=== PATIENT | male | born 1950 | race Caucasian/White ===

== ENCOUNTER 2017-05-23 05:55 | Inpatient (IN) | payer MEDICARE, BC ==
[~2017-05-23] VITALS: Ht 172.7 cm; Wt 101.7 kg
[~2017-05-23 05:55] MED LIST: ALLO100T PO; AMIO200T57 PO; CARV-50 PO; COU3T PO; DIGO125T PO; FURO-150 PO; INSU100V12 SQ; INSU100V5 IJ; ISOS30TA9 PO; METF500T PO; SIMV20TA5 PO; SPIR25TA3 PO; VALS160T2 PO
[2017-05-23] MEDS ORDERED: CefTRIAXone 1 gm/50ml D5W ADV 50 ML IV ONE (06:40)
[2017-05-23] MEDS ORDERED: AMIO200T57 PO (07:06)
[2017-05-23] MEDS ORDERED: cefTRIAXone 1g/NS 100ml IVPB 100 ML IV ONE (07:10)
[2017-05-23 07:28] LABS: BASOPHILS % (AUTO) 0.3 % (0-1); EOSINOPHILS # (AUTO) 0.2 X10'3 (0-0.9); EOSINOPHILS % (AUTO) 2.3 % (0-6); HEMATOCRIT 41.1 % (42.0-52.0); HEMOGLOBIN 13.6 g/dl (14.0-17.9); LYMPHOCYTES # (AUTO) 0.5 X10'3 (1.1-4.8); LYMPHOCYTES % (AUTO) 6.4 % (21-51); MEAN CORPUSCULAR HEMOGLOBIN 28.7 PG (27.0-31.0); MEAN CORPUSCULAR HGB CONC 33.2 % (33.0-36.5); MEAN CORPUSCULAR VOLUME 86.4 FL (78-98); MEAN PLATELET VOLUME 7.8 FL (7.4-10.4); MONOCYTES # (AUTO) 0.4 X10'3 (0-0.9); MONOCYTES % (AUTO) 5.5 % (2-12); NEUTROPHILS # (AUTO) 6.7 X10'3 (1.8-7.7); NEUTROPHILS % (AUTO) 85.5 % (42-75); PLATELET COUNT 156 X10'3 (140-440); RED BLOOD COUNT 4.76 X10'6 (4.70-6.10); RED CELL DISTRIBUTION WIDTH 17.1 % (11.5-14.5); WHITE BLOOD COUNT 7.9 X10'3 (4.5-11.0)
[2017-05-23 07:47] LABS: ALANINE AMINOTRANSFERASE 21 U/L (12-78); ALBUMIN 3.5 G/DL (3.4-5.0); ALBUMIN/GLOBULIN RATIO 1.1 (1.1-1.5); ALKALINE PHOSPHATASE 86 IU/L (46-116); ANION GAP 11 (8-16); ASPARTATE AMINO TRANSFERASE 11 U/L (10-37); BILIRUBIN,TOTAL 0.9 MG/DL (0.1-1.0); BLOOD UREA NITROGEN 82 MG/DL (7-18); BUN/CREATININE RATIO 29.4 (5.4-32.0); CALCIUM 8.5 MG/DL (8.5-10.1); CHLORIDE 101 MMOL/L (99-107); CREATININE 2.79 MG/DL (0.60-1.10); GLUCOSE 99 MG/DL (70-104); POTASSIUM 4.9 MMOL/L (3.5-5.1); SODIUM 134 MMOL/L (135-145); TOTAL CARBON DIOXIDE 22.1 MMOL/L (24-32); TOTAL PROTEIN 6.7 G/DL (6.4-8.2); eGFR 23 ML/MIN
[2017-05-23 07:52] LABS: URINE AMPHETAMINE SCREEN NEGATIVE (Neg); URINE BARBITUATE SCREEN NEGATIVE (Neg); URINE BENZODIAZEPINES SCREEN NEGATIVE (Neg); URINE CANNABINOID SCREEN NEGATIVE (Neg); URINE COCAINE SCREEN NEGATIVE (Neg); URINE METHADONE SCREEN NEGATIVE (Neg); URINE OPIATE SCREEN NEGATIVE (Neg); URINE PHENCYCLIDINE SCREEN NEGATIVE (Neg)
[2017-05-23] MEDS ORDERED: HYDROcodone/acetaminophen 5mg/325mg tablet PO PRN (08:05)
[2017-05-23] MEDS ORDERED: potassium Cl 20 mEq SR tablet PO PRN ×2 (08:05)
[2017-05-23] MEDS ORDERED: magnesium Cl slow-release 64mg tablet PO PRN (08:05)
[2017-05-23] MEDS ORDERED: ondansetron/PF 4mg/2ml inj IV PRN (08:05)
[2017-05-23] MEDS ORDERED: dextrose 5%-lactated ringers 1,000 ML IV SCH (08:05)
[2017-05-23] MEDS ORDERED: HYDROcodone/acetaminophen 10/325mg tab PO PRN (08:05)
[2017-05-23] MEDS ORDERED: magnesium 4gm in 100ml NS 100 ML IV PRN (08:05)
[2017-05-23] MEDS ORDERED: potassium Cl 40MEQ/NS 500ml 500 ML IV PRN ×2 (08:05)
[2017-05-23] MEDS ORDERED: acetaminophen 325mg tablet PO PRN ×2 (08:05)
[2017-05-23] MEDS ORDERED: magnesium hydroxide 30ml (MOM) UD suspension PO PRN (08:05)
[2017-05-23] MEDS ORDERED: magnesium 2GM in 50ml NS 50 ML IV PRN (08:05)
[2017-05-23] MEDS ORDERED: mag hydrox/Alum hydrox/simeth 30ml oral suspension PO PRN (08:05)
[2017-05-23] MEDS: Dextrose 10%-water IV solution 1,000 ML IV SCH (08:10)
[2017-05-23 08:32] LABS: INR 2.5 INR; PARTIAL THROMBOPLASTIN TIME 37 SECONDS (22-32); PROTHROMBIN TIME 25.4 SECONDS (9.0-12.0)
[2017-05-23 08:42] LABS: MAGNESIUM 2.1 MG/DL (1.5-2.4); PHOSPHORUS 4.4 MG/DL (2.3-4.5)
[2017-05-23] MEDS ORDERED: azithromycin/NS 500mg/250ml 250 ML IV ONE (08:55)
[2017-05-23] MEDS ORDERED: dextrose 50%-water 50ml dispensing syringe IV PRN ×2 (09:55)
[2017-05-23] MEDS ORDERED: MESSAGE TO PHARMACY PO ONE (09:55)
[2017-05-23] MEDS ORDERED: dextrose ORAL solution 15 GM/59 ML bottle PO PRN ×2 (09:55)
[2017-05-23] MEDS ORDERED: glucagon, human recombinant 1mg kit SUBCUT PRN (09:55)
[2017-05-23 11:14] VITALS: BP 84/60
[2017-05-23] MEDS: cefTRIAXone 1g/NS 100ml IVPB 100 ML IV SCH (11:27)
[2017-05-23 12:40] LABS: OSMOLALITY UA 287 MOSM/K (50-1400)
[2017-05-23 12:47] LABS: CREATININE,URINE RANDOM 36.5 MG/DL; SODIUM,URINE RANDOM 71 MEQ/L; TOTAL PROTEIN,URINE RANDOM < 6.0 MG/DL
[2017-05-23] MEDS: sodium chloride inj. 154 MEQ in Dextrose 10%-water IV solution 961.5 ML IV SCH ×3 (13:05→21:39)
[2017-05-23 15:00] VITALS: BP 90/64
[2017-05-23] MEDS ORDERED: ipratropium/albuterol 3ml nebule NEB PRN (15:00)
[2017-05-23 18:00] VITALS: BP 97/61
[2017-05-23] MEDS: ipratropium/albuterol 3ml nebule NEB SCH ×2 (19:49→23:27)
[2017-05-23] MEDS ORDERED: temazepam 15mg capsule PO PRN (21:00)
[2017-05-23] MEDS ORDERED: warfarin 3mg tablet PO SCH (21:00)
[2017-05-23] MEDS: amiodarone 200mg tablet PO SCH (21:41)
[2017-05-23] MEDS: carVEDilol 12.5mg tablet PO SCH (21:42)
[2017-05-23] MEDS: heparin, porcine 5000 units/ml vial SQ SCH (21:43)
[2017-05-23 22:00] VITALS: BP 105/63
[2017-05-24 02:00] VITALS: BP 143/59
[2017-05-24] MEDS: Dextrose 10%-water IV solution 1,000 ML IV SCH (02:40)
[2017-05-24] MEDS: ipratropium/albuterol 3ml nebule NEB SCH ×6 (04:07→23:15)
[2017-05-24] MEDS: normal saline 1000ml 1,000 ML IV SCH ×2 (04:17→23:10)
[2017-05-24 05:45] LABS: BASOPHILS % (AUTO) 0.6 % (0-1); EOSINOPHILS # (AUTO) 0.3 X10'3 (0-0.9); EOSINOPHILS % (AUTO) 3.8 % (0-6); HEMATOCRIT 38.2 % (42.0-52.0); HEMOGLOBIN 12.4 g/dl (14.0-17.9); LYMPHOCYTES # (AUTO) 0.5 X10'3 (1.1-4.8); LYMPHOCYTES % (AUTO) 7.4 % (21-51); MEAN CORPUSCULAR HEMOGLOBIN 28.5 PG (27.0-31.0); MEAN CORPUSCULAR HGB CONC 32.4 % (33.0-36.5); MEAN CORPUSCULAR VOLUME 87.9 FL (78-98); MEAN PLATELET VOLUME 8.7 FL (7.4-10.4); MONOCYTES # (AUTO) 0.6 X10'3 (0-0.9); MONOCYTES % (AUTO) 8.4 % (2-12); NEUTROPHILS # (AUTO) 5.9 X10'3 (1.8-7.7); NEUTROPHILS % (AUTO) 79.8 % (42-75); PLATELET COUNT 138 X10'3 (140-440); RED BLOOD COUNT 4.35 X10'6 (4.70-6.10); RED CELL DISTRIBUTION WIDTH 16.8 % (11.5-14.5); WHITE BLOOD COUNT 7.4 X10'3 (4.5-11.0)
[2017-05-24 05:50] LABS: INR 3.6 INR; PARTIAL THROMBOPLASTIN TIME 38 SECONDS (22-32); PROTHROMBIN TIME 35.8 SECONDS (9.0-12.0)
[2017-05-24 06:00] VITALS: BP 124/69
[2017-05-24 06:18] LABS: ALANINE AMINOTRANSFERASE < 6 U/L (12-78); ALBUMIN 3.1 G/DL (3.4-5.0); ALBUMIN/GLOBULIN RATIO 1.1 (1.1-1.5); ALKALINE PHOSPHATASE 72 IU/L (46-116); ANION GAP 10 (8-16); ASPARTATE AMINO TRANSFERASE 19 U/L (10-37); BILIRUBIN,TOTAL 0.8 MG/DL (0.1-1.0); BLOOD UREA NITROGEN 74 MG/DL (7-18); BUN/CREATININE RATIO 28.5 (5.4-32.0); CALCIUM 8.2 MG/DL (8.5-10.1); CHLORIDE 102 MMOL/L (99-107); CHOL/HDL RATIO 3.4 (0.00-4.99); CHOLESTEROL 82 MG/DL (0-200); GLUCOSE 258 MG/DL (70-104); HDL CHOLESTEROL 24 MG/DL (35-60); PHOSPHORUS 3.7 MG/DL (2.3-4.5); POTASSIUM 4.8 MMOL/L (3.5-5.1); SODIUM 133 MMOL/L (135-145); TOTAL CARBON DIOXIDE 21.3 MMOL/L (24-32); TOTAL PROTEIN 5.9 G/DL (6.4-8.2); TRIGLYCERIDES 66 MG/DL (20-135); eGFR 25 ML/MIN
[2017-05-24 07:17] LABS: LDL CHOLESTEROL 50 MG/DL (50-100)
[2017-05-24] MEDS ORDERED: isosorbide dinitrate 30mg tablet PO SCH (08:00)
[2017-05-24] MEDS: heparin, porcine 5000 units/ml vial SQ SCH ×2 (08:00→20:08)
[2017-05-24] MEDS: K and/or MAG REPLACEMENT MC SCH (08:00)
[2017-05-24] MEDS ORDERED: azithromycin/NS 500mg/250ml 250 ML IV SCH (08:00)
[2017-05-24] MEDS: carVEDilol 12.5mg tablet PO SCH ×2 (08:06→20:08)
[2017-05-24] MEDS: digoxin 125mcg (0.125mg) tablet PO SCH (08:07)
[2017-05-24] MEDS: amiodarone 200mg tablet PO SCH ×2 (08:07→20:08)
[2017-05-24] MEDS: cefTRIAXone 1g/NS 100ml IVPB 100 ML IV SCH (08:09)
[2017-05-24 11:00] VITALS: BP 113/53
[2017-05-24] MEDS ORDERED: dextrose ORAL solution 15 GM/59 ML bottle PO PRN ×2 (14:05)
[2017-05-24] MEDS ORDERED: dextrose 50%-water 50ml dispensing syringe IV PRN ×2 (14:05)
[2017-05-24] MEDS ORDERED: glucagon, human recombinant 1mg kit SUBCUT PRN (14:05)
[2017-05-24 15:00] VITALS: BP 108/51
[2017-05-24] MEDS: sodium chloride inj. 154 MEQ in Dextrose 10%-water IV solution 961.5 ML IV SCH (15:55)
[2017-05-24 19:00] VITALS: BP 105/80
[2017-05-24] MEDS: insulin Lispro (HumaLOG) vial - multi-dose SQ SCH (19:00)
[2017-05-24] MEDS ORDERED: warfarin 3mg tablet PO SCH (21:00)
[2017-05-24] MEDS ORDERED: ISOS30TA6 PO (21:12)
[2017-05-24] MEDS: Insulin Detemir pen SQ SCH (21:58)
[2017-05-24 23:00] VITALS: BP 92/62
[2017-05-25 03:00] VITALS: BP 96/62
[2017-05-25] MEDS: ipratropium/albuterol 3ml nebule NEB SCH ×3 (03:45→11:00)
[2017-05-25 06:00] VITALS: BP 146/91
[2017-05-25 06:29] LABS: BASOPHILS % (AUTO) 0.5 % (0-1); EOSINOPHILS # (AUTO) 0.4 X10'3 (0-0.9); EOSINOPHILS % (AUTO) 4.3 % (0-6); HEMOGLOBIN 12.9 g/dl (14.0-17.9); LYMPHOCYTES # (AUTO) 0.6 X10'3 (1.1-4.8); LYMPHOCYTES % (AUTO) 6.5 % (21-51); MEAN CORPUSCULAR HEMOGLOBIN 28.7 PG (27.0-31.0); MEAN PLATELET VOLUME 8.7 FL (7.4-10.4); MONOCYTES # (AUTO) 0.8 X10'3 (0-0.9); MONOCYTES % (AUTO) 8.4 % (2-12); NEUTROPHILS # (AUTO) 7.4 X10'3 (1.8-7.7); NEUTROPHILS % (AUTO) 80.3 % (42-75); PLATELET COUNT 136 X10'3 (140-440); RED BLOOD COUNT 4.48 X10'6 (4.70-6.10); RED CELL DISTRIBUTION WIDTH 16.6 % (11.5-14.5); WHITE BLOOD COUNT 9.2 X10'3 (4.5-11.0)
[2017-05-25 06:37] LABS: PARTIAL THROMBOPLASTIN TIME 40 SECONDS (22-32); PROTHROMBIN TIME 29.9 SECONDS (9.0-12.0)
[2017-05-25 06:58] LABS: ALANINE AMINOTRANSFERASE 19 U/L (12-78); ALBUMIN 3.4 G/DL (3.4-5.0); ALBUMIN/GLOBULIN RATIO 1.1 (1.1-1.5); ALKALINE PHOSPHATASE 78 IU/L (46-116); ANION GAP 11 (8-16); ASPARTATE AMINO TRANSFERASE 10 U/L (10-37); BILIRUBIN,TOTAL 0.9 MG/DL (0.1-1.0); BLOOD UREA NITROGEN 68 MG/DL (7-18); BUN/CREATININE RATIO 28.3 (5.4-32.0); CALCIUM 8.7 MG/DL (8.5-10.1); CHLORIDE 102 MMOL/L (99-107); GLUCOSE 168 MG/DL (70-104); MAGNESIUM 2.1 MG/DL (1.5-2.4); PHOSPHORUS 3.7 MG/DL (2.3-4.5); POTASSIUM 4.8 MMOL/L (3.5-5.1); SODIUM 136 MMOL/L (135-145); TOTAL CARBON DIOXIDE 22.7 MMOL/L (24-32); TOTAL PROTEIN 6.5 G/DL (6.4-8.2); eGFR 27 ML/MIN
[2017-05-25] MEDS: K and/or MAG REPLACEMENT MC SCH (08:00)
[2017-05-25] MEDS: cefTRIAXone 1g/NS 100ml IVPB 100 ML IV SCH (08:06)
[2017-05-25] MEDS: amiodarone 200mg tablet PO SCH ×2 (08:07→19:50)
[2017-05-25] MEDS: azithromycin 250mg tablet PO SCH (08:07)
[2017-05-25] MEDS: LACTOBACILLUS RHAMNOSUS GG 15 billion unit sprinkle caps PO SCH (08:07)
[2017-05-25] MEDS: heparin, porcine 5000 units/ml vial SQ SCH (08:07)
[2017-05-25] MEDS: carVEDilol 12.5mg tablet PO SCH ×2 (08:07→19:51)
[2017-05-25] MEDS: isosorbide mononitrate 30mg tab.SR.24H PO SCH (08:08)
[2017-05-25] MEDS: digoxin 125mcg (0.125mg) tablet PO SCH (08:08)
[2017-05-25] MEDS: insulin Lispro (HumaLOG) vial - multi-dose SQ SCH ×3 (09:18→18:38)
[2017-05-25 11:00] VITALS: BP 109/70
[2017-05-25 15:00] VITALS: BP 122/79
[2017-05-25 19:00] VITALS: BP 119/74
[2017-05-25] MEDS: normal saline 1000ml 1,000 ML IV SCH (19:51)
[2017-05-25] MEDS ORDERED: warfarin 1mg tablet PO ONE (21:00)
[2017-05-25] MEDS: Insulin Detemir pen SQ SCH (21:31)
[2017-05-25 23:00] VITALS: BP 126/54
[2017-05-26] VITALS (7 sets, daily range): BP systolic 96–119; BP diastolic 48–75
[2017-05-26 06:42] LABS: BASOPHILS # (AUTO) 0.1 X10'3 (0-0.2); BASOPHILS % (AUTO) 0.7 % (0-1); EOSINOPHILS # (AUTO) 0.3 X10'3 (0-0.9); EOSINOPHILS % (AUTO) 4.5 % (0-6); HEMATOCRIT 39.2 % (42.0-52.0); HEMOGLOBIN 12.6 g/dl (14.0-17.9); LYMPHOCYTES # (AUTO) 0.6 X10'3 (1.1-4.8); LYMPHOCYTES % (AUTO) 8.8 % (21-51); MEAN CORPUSCULAR HEMOGLOBIN 28.4 PG (27.0-31.0); MEAN CORPUSCULAR HGB CONC 32.2 % (33.0-36.5); MEAN CORPUSCULAR VOLUME 88.1 FL (78-98); MEAN PLATELET VOLUME 8.8 FL (7.4-10.4); MONOCYTES # (AUTO) 0.7 X10'3 (0-0.9); MONOCYTES % (AUTO) 9.1 % (2-12); NEUTROPHILS # (AUTO) 5.6 X10'3 (1.8-7.7); NEUTROPHILS % (AUTO) 76.9 % (42-75); PLATELET COUNT 133 X10'3 (140-440); RED BLOOD COUNT 4.45 X10'6 (4.70-6.10); RED CELL DISTRIBUTION WIDTH 17.1 % (11.5-14.5); WHITE BLOOD COUNT 7.3 X10'3 (4.5-11.0)
[2017-05-26 07:02] LABS: INR 3.1 INR; PARTIAL THROMBOPLASTIN TIME 47 SECONDS (22-32); PROTHROMBIN TIME 30.8 SECONDS (9.0-12.0)
[2017-05-26 07:19] LABS: ALANINE AMINOTRANSFERASE 16 U/L (12-78); ALBUMIN 3.3 G/DL (3.4-5.0); ALKALINE PHOSPHATASE 75 IU/L (46-116); ANION GAP 11 (8-16); ASPARTATE AMINO TRANSFERASE 10 U/L (10-37); BLOOD UREA NITROGEN 65 MG/DL (7-18); BUN/CREATININE RATIO 28.9 (5.4-32.0); CALCIUM 8.6 MG/DL (8.5-10.1); CHLORIDE 103 MMOL/L (99-107); CREATININE 2.25 MG/DL (0.60-1.10); GLUCOSE 102 MG/DL (70-104); MAGNESIUM 2.3 MG/DL (1.5-2.4); PHOSPHORUS 3.4 MG/DL (2.3-4.5); POTASSIUM 4.8 MMOL/L (3.5-5.1); SODIUM 137 MMOL/L (135-145); TOTAL CARBON DIOXIDE 23.3 MMOL/L (24-32); TOTAL PROTEIN 6.5 G/DL (6.4-8.2); eGFR 29 ML/MIN
[2017-05-26] MEDS: amiodarone 200mg tablet PO SCH ×2 (07:57→20:06)
[2017-05-26] MEDS: azithromycin 250mg tablet PO SCH (07:57)
[2017-05-26] MEDS: digoxin 125mcg (0.125mg) tablet PO SCH (07:57)
[2017-05-26] MEDS: carVEDilol 12.5mg tablet PO SCH ×2 (07:58→20:06)
[2017-05-26] MEDS: K and/or MAG REPLACEMENT MC SCH (07:58)
[2017-05-26] MEDS: isosorbide mononitrate 30mg tab.SR.24H PO SCH (07:58)
[2017-05-26] MEDS: LACTOBACILLUS RHAMNOSUS GG 15 billion unit sprinkle caps PO SCH (07:58)
[2017-05-26] MEDS: cefTRIAXone 1g/NS 100ml IVPB 100 ML IV SCH (07:59)
[2017-05-26] MEDS: insulin Lispro (HumaLOG) vial - multi-dose SQ SCH ×2 (10:21→18:46)
[2017-05-26] MEDS: normal saline 1000ml 1,000 ML IV SCH (15:42)
[2017-05-26] MEDS: Insulin Detemir pen SQ SCH (21:19)
[2017-05-27] VITALS (7 sets, daily range): BP systolic 87–142; BP diastolic 58–109
[2017-05-27 06:04] LABS: BASOPHILS % (AUTO) 0.7 % (0-1); EOSINOPHILS # (AUTO) 0.3 X10'3 (0-0.9); EOSINOPHILS % (AUTO) 3.8 % (0-6); HEMATOCRIT 38.9 % (42.0-52.0); HEMOGLOBIN 12.7 g/dl (14.0-17.9); LYMPHOCYTES # (AUTO) 0.5 X10'3 (1.1-4.8); LYMPHOCYTES % (AUTO) 6.8 % (21-51); MEAN CORPUSCULAR HEMOGLOBIN 28.5 PG (27.0-31.0); MEAN CORPUSCULAR HGB CONC 32.6 % (33.0-36.5); MEAN CORPUSCULAR VOLUME 87.3 FL (78-98); MEAN PLATELET VOLUME 8.5 FL (7.4-10.4); MONOCYTES # (AUTO) 0.6 X10'3 (0-0.9); NEUTROPHILS # (AUTO) 5.6 X10'3 (1.8-7.7); NEUTROPHILS % (AUTO) 79.7 % (42-75); PLATELET COUNT 125 X10'3 (140-440); RED BLOOD COUNT 4.45 X10'6 (4.70-6.10); RED CELL DISTRIBUTION WIDTH 16.8 % (11.5-14.5); WHITE BLOOD COUNT 7.1 X10'3 (4.5-11.0)
[2017-05-27 06:19] LABS: INR 3.2 INR; PROTHROMBIN TIME 31.3 SECONDS (9.0-12.0)
[2017-05-27 06:25] LABS: ALANINE AMINOTRANSFERASE 17 U/L (12-78); ALBUMIN 3.1 G/DL (3.4-5.0); ALKALINE PHOSPHATASE 68 IU/L (46-116); ANION GAP 8 (8-16); ASPARTATE AMINO TRANSFERASE 9 U/L (10-37); BILIRUBIN,TOTAL 0.7 MG/DL (0.1-1.0); BLOOD UREA NITROGEN 63 MG/DL (7-18); BUN/CREATININE RATIO 29.6 (5.4-32.0); CALCIUM 8.3 MG/DL (8.5-10.1); CHLORIDE 105 MMOL/L (99-107); CREATININE 2.13 MG/DL (0.60-1.10); GLUCOSE 134 MG/DL (70-104); MAGNESIUM 2.3 MG/DL (1.5-2.4); PHOSPHORUS 4.1 MG/DL (2.3-4.5); POTASSIUM 5.1 MMOL/L (3.5-5.1); SODIUM 136 MMOL/L (135-145); TOTAL CARBON DIOXIDE 23.5 MMOL/L (24-32); TOTAL PROTEIN 6.1 G/DL (6.4-8.2); eGFR 31 ML/MIN
[2017-05-27] MEDS: amiodarone 200mg tablet PO SCH ×2 (07:07→19:35)
[2017-05-27] MEDS: cefTRIAXone 1g/NS 100ml IVPB 100 ML IV SCH (07:07)
[2017-05-27] MEDS: LACTOBACILLUS RHAMNOSUS GG 15 billion unit sprinkle caps PO SCH (07:07)
[2017-05-27] MEDS: isosorbide mononitrate 30mg tab.SR.24H PO SCH (07:08)
[2017-05-27] MEDS: digoxin 125mcg (0.125mg) tablet PO SCH (07:08)
[2017-05-27] MEDS: azithromycin 250mg tablet PO SCH (07:08)
[2017-05-27] MEDS: K and/or MAG REPLACEMENT MC SCH (07:13)
[2017-05-27] MEDS: carVEDilol 12.5mg tablet PO SCH ×2 (08:00→19:35)
[2017-05-27 10:12] LABS: BASOPHILS % (AUTO) 0.5 % (0-1); EOSINOPHILS # (AUTO) 0.3 X10'3 (0-0.9); EOSINOPHILS % (AUTO) 3.5 % (0-6); HEMATOCRIT 39.5 % (42.0-52.0); HEMOGLOBIN 12.9 g/dl (14.0-17.9); LYMPHOCYTES # (AUTO) 0.4 X10'3 (1.1-4.8); LYMPHOCYTES % (AUTO) 5.8 % (21-51); MEAN CORPUSCULAR HEMOGLOBIN 28.8 PG (27.0-31.0); MEAN CORPUSCULAR HGB CONC 32.7 % (33.0-36.5); MEAN CORPUSCULAR VOLUME 87.9 FL (78-98); MEAN PLATELET VOLUME 8.7 FL (7.4-10.4); MONOCYTES # (AUTO) 0.6 X10'3 (0-0.9); MONOCYTES % (AUTO) 8.1 % (2-12); NEUTROPHILS # (AUTO) 6.3 X10'3 (1.8-7.7); NEUTROPHILS % (AUTO) 82.1 % (42-75); PLATELET COUNT 138 X10'3 (140-440); RED BLOOD COUNT 4.49 X10'6 (4.70-6.10); RED CELL DISTRIBUTION WIDTH 17.3 % (11.5-14.5); WHITE BLOOD COUNT 7.7 X10'3 (4.5-11.0)
[2017-05-27 10:24] LABS: ALANINE AMINOTRANSFERASE 14 U/L (12-78); ALBUMIN 3.1 G/DL (3.4-5.0); ALKALINE PHOSPHATASE 69 IU/L (46-116); ANION GAP 5 (8-16); ASPARTATE AMINO TRANSFERASE 10 U/L (10-37); BILIRUBIN,TOTAL 0.7 MG/DL (0.1-1.0); BLOOD UREA NITROGEN 61 MG/DL (7-18); BUN/CREATININE RATIO 29.6 (5.4-32.0); CALCIUM 8.5 MG/DL (8.5-10.1); CHLORIDE 105 MMOL/L (99-107); CREATININE 2.06 MG/DL (0.60-1.10); GLUCOSE 126 MG/DL (70-104); POTASSIUM 5.1 MMOL/L (3.5-5.1); SODIUM 135 MMOL/L (135-145); TOTAL CARBON DIOXIDE 24.7 MMOL/L (24-32); TOTAL PROTEIN 6.2 G/DL (6.4-8.2); eGFR 32 ML/MIN
[2017-05-27] MEDS: normal saline 1000ml 1,000 ML IV SCH (11:16)
[2017-05-27] MEDS: insulin Lispro (HumaLOG) vial - multi-dose SQ SCH (19:32)
[2017-05-27] MEDS: Insulin Detemir pen SQ SCH (21:49)
[2017-05-28 02:00] VITALS: BP 113/71
[2017-05-28 06:00] VITALS: BP 111/68
[2017-05-28 06:02] LABS: BASOPHILS % (AUTO) 0.7 % (0-1); EOSINOPHILS # (AUTO) 0.2 X10'3 (0-0.9); EOSINOPHILS % (AUTO) 2.8 % (0-6); HEMATOCRIT 38.7 % (42.0-52.0); HEMOGLOBIN 12.6 g/dl (14.0-17.9); LYMPHOCYTES # (AUTO) 0.5 X10'3 (1.1-4.8); LYMPHOCYTES % (AUTO) 6.6 % (21-51); MEAN CORPUSCULAR HEMOGLOBIN 28.8 PG (27.0-31.0); MEAN CORPUSCULAR HGB CONC 32.7 % (33.0-36.5); MEAN PLATELET VOLUME 8.4 FL (7.4-10.4); MONOCYTES # (AUTO) 0.6 X10'3 (0-0.9); NEUTROPHILS # (AUTO) 6.1 X10'3 (1.8-7.7); NEUTROPHILS % (AUTO) 81.9 % (42-75); PLATELET COUNT 138 X10'3 (140-440); RED CELL DISTRIBUTION WIDTH 16.8 % (11.5-14.5); WHITE BLOOD COUNT 7.4 X10'3 (4.5-11.0)
[2017-05-28 06:16] LABS: INR 2.5 INR; PROTHROMBIN TIME 24.8 SECONDS (9.0-12.0)
[2017-05-28 06:22] LABS: ALANINE AMINOTRANSFERASE 17 U/L (12-78); ALBUMIN 3.1 G/DL (3.4-5.0); ALKALINE PHOSPHATASE 68 IU/L (46-116); ANION GAP 7 (8-16); ASPARTATE AMINO TRANSFERASE 8 U/L (10-37); BILIRUBIN,TOTAL 0.6 MG/DL (0.1-1.0); BLOOD UREA NITROGEN 64 MG/DL (7-18); BUN/CREATININE RATIO 27.6 (5.4-32.0); CALCIUM 8.3 MG/DL (8.5-10.1); CHLORIDE 106 MMOL/L (99-107); CREATININE 2.32 MG/DL (0.60-1.10); GLUCOSE 154 MG/DL (70-104); MAGNESIUM 2.4 MG/DL (1.5-2.4); PHOSPHORUS 4.2 MG/DL (2.3-4.5); POTASSIUM 5.7 MMOL/L (3.5-5.1); SODIUM 137 MMOL/L (135-145); TOTAL CARBON DIOXIDE 24.3 MMOL/L (24-32); TOTAL PROTEIN 6.1 G/DL (6.4-8.2); eGFR 28 ML/MIN
[2017-05-28] MEDS: K and/or MAG REPLACEMENT MC SCH (07:03)
[2017-05-28] MEDS: normal saline 1000ml 1,000 ML IV SCH (07:10)
[2017-05-28] MEDS: cefTRIAXone 1g/NS 100ml IVPB 100 ML IV SCH (07:16)
[2017-05-28] MEDS: amiodarone 200mg tablet PO SCH (07:18)
[2017-05-28] MEDS: azithromycin 250mg tablet PO SCH (07:18)
[2017-05-28] MEDS: carVEDilol 12.5mg tablet PO SCH (07:18)
[2017-05-28] MEDS: LACTOBACILLUS RHAMNOSUS GG 15 billion unit sprinkle caps PO SCH (07:18)
[2017-05-28] MEDS: digoxin 125mcg (0.125mg) tablet PO SCH (07:20)
[2017-05-28] MEDS: isosorbide mononitrate 30mg tab.SR.24H PO SCH (07:20)
[2017-05-28] MEDS: insulin Lispro (HumaLOG) vial - multi-dose SQ SCH (08:31)
[2017-05-28] MEDS ORDERED: AZI25OT PO (09:12)
[2017-05-28] MEDS ORDERED: VANCOMYCIN LEVEL IV ONE (10:30)
== END 2017-05-28 13:18 | DRG 682 ==
LOC: ER 05:55 → ED HOLD 08:04 → PCU 3S 10:55
PROVIDERS: ADMIT Family Medicine; ATTEND Internal Medicine
DX: N17.9 Acute kidney failure, unspecified (principal); J18.9 Pneumonia, unspecified organism; I47.2 Ventricular tachycardia; E11.22 Type 2 diabetes mellitus with diabetic chronic kidney disease; E11.649 Type 2 diabetes mellitus with hypoglycemia without coma; I13.0 Hypertensive heart and chronic kidney disease with heart failure and stage 1 through stage 4 chronic kidney disease, or unspecified chronic kidney disease; I95.9 Hypotension, unspecified; I42.9 Cardiomyopathy, unspecified; E66.01 Morbid (severe) obesity due to excess calories; I50.22 Chronic systolic (congestive) heart failure; E87.1 Hypo-osmolality and hyponatremia; L03.115 Cellulitis of right lower limb; N18.4 Chronic kidney disease, stage 4 (severe); E78.5 Hyperlipidemia, unspecified; G47.33 Obstructive sleep apnea (adult) (pediatric); I48.2 Chronic atrial fibrillation; M10.9 Gout, unspecified; Z79.01 Long term (current) use of anticoagulants; Z90.49 Acquired absence of other specified parts of digestive tract; Z95.810 Presence of automatic (implantable) cardiac defibrillator; Z99.81 Dependence on supplemental oxygen; Z79.899 Other long term (current) drug therapy; Z79.4 Long term (current) use of insulin; Z68.34 Body mass index [BMI] 34.0-34.9, adult
CPT/HCPCS: 36415; 71045; 71046; 74018; 76775; 80053; 80061; 80162; 80305; 82570; 82948; 83605; 83735; 83880; 83935; 84100; 84133; 84156; 84300; 84439; 84443; 85025; 85610; 85730; 87040; 87070; 87207; 87502; 87503; 93005; 93306; 94640; 94760; 96365; 97110; 97116; 97162; 97530; 99285; J0456; J0696; J1644; J2405; J3370; J7030; J7120; J7131

== ENCOUNTER 2017-06-08 08:58 | Day surgery (SDC) | payer MEDICARE, BC ==
[~2017-06-08] VITALS: Ht 172.7 cm; Wt 108.9 kg
[2017-06-08] VITALS (7 sets, daily range): BP systolic 92–98; BP diastolic 51–65
[~2017-06-08 08:58] MED LIST changes: +AZI25OT PO; -FURO-150 PO; +ISOS30TA6 PO; -ISOS30TA9 PO; -METF500T PO; -SPIR25TA3 PO; -VALS160T2 PO
[2017-06-08 09:57] LABS: INR 1.3 INR; PROTHROMBIN TIME 13.1 SECONDS (9.0-12.0)
[2017-06-08] MEDS ORDERED: LIDOcaine 1% 30ml vial SQ STA (10:01)
[2017-06-08] MEDS ORDERED: INSU100I31 SQ ×2 (10:05→10:07)
[2017-06-08] MEDS ORDERED: LACTC PO (10:11)
[2017-06-08] MEDS ORDERED: FURO80TA87 PO (10:13)
[2017-06-08] MEDS ORDERED: ALBU8HFA PO (10:37)
[2017-06-08] MEDS ORDERED: MULT-38 PO (10:38)
== END 2017-06-08 11:15 ==
LOC: SSTAY O 08:58
PROVIDERS: ATTEND Radiology Vascular & Interventional Radiology
DX: J90 Pleural effusion, not elsewhere classified (principal); E78.4 Other hyperlipidemia; E66.9 Obesity, unspecified; G47.30 Sleep apnea, unspecified; M10.9 Gout, unspecified; Z79.4 Long term (current) use of insulin; Z79.899 Other long term (current) drug therapy; Z90.49 Acquired absence of other specified parts of digestive tract; I13.0 Hypertensive heart and chronic kidney disease with heart failure and stage 1 through stage 4 chronic kidney disease, or unspecified chronic kidney disease; I50.22 Chronic systolic (congestive) heart failure; N18.4 Chronic kidney disease, stage 4 (severe); E11.22 Type 2 diabetes mellitus with diabetic chronic kidney disease; Z68.34 Body mass index [BMI] 34.0-34.9, adult; I48.2 Chronic atrial fibrillation; E11.65 Type 2 diabetes mellitus with hyperglycemia; G47.33 Obstructive sleep apnea (adult) (pediatric); I25.2 Old myocardial infarction; Z95.810 Presence of automatic (implantable) cardiac defibrillator
CPT/HCPCS: 32555; 36415; 71045; 85610; J3490

== ENCOUNTER 2017-06-28 15:17 | Inpatient (IN) | payer MEDICARE, BC ==
[~2017-06-28] VITALS: Ht 172.7 cm; Wt 120.1 kg
[~2017-06-28 15:17] MED LIST changes: +ALBU8HFA PO; -AZI25OT PO; -DIGO125T PO; +FURO80TA87 PO; +INSU100I31 SQ; -INSU100V12 SQ; +LACTC PO; +MULT-38 PO
[2017-06-28 16:58] LABS: ANION GAP 13 (8-16); BLOOD UREA NITROGEN 141 MG/DL (7-18); BUN/CREATININE RATIO 30.7 (5.4-32.0); CALCIUM 8.2 MG/DL (8.5-10.1); CHLORIDE 97 MMOL/L (99-107); GLUCOSE 207 MG/DL (70-104); POTASSIUM 5.4 MMOL/L (3.5-5.1); SODIUM 129 MMOL/L (135-145); TOTAL CARBON DIOXIDE 18.7 MMOL/L (24-32); eGFR 13 ML/MIN
[2017-06-28 17:12] LABS: BASOPHILS % (AUTO) 0.2 % (0-1); EOSINOPHILS # (AUTO) 0.2 X10'3 (0-0.9); EOSINOPHILS % (AUTO) 1.5 % (0-6); HEMATOCRIT 40.8 % (42.0-52.0); HEMOGLOBIN 13.7 g/dl (14.0-17.9); LYMPHOCYTES # (AUTO) 0.6 X10'3 (1.1-4.8); LYMPHOCYTES % (AUTO) 4.2 % (21-51); MEAN CORPUSCULAR HEMOGLOBIN 28.7 PG (27.0-31.0); MEAN CORPUSCULAR HGB CONC 33.6 % (33.0-36.5); MEAN CORPUSCULAR VOLUME 85.3 FL (78-98); MEAN PLATELET VOLUME 8.6 FL (7.4-10.4); MONOCYTES # (AUTO) 0.9 X10'3 (0-0.9); MONOCYTES % (AUTO) 6.9 % (2-12); NEUTROPHILS # (AUTO) 11.4 X10'3 (1.8-7.7); NEUTROPHILS % (AUTO) 87.2 % (42-75); PLATELET COUNT 153 X10'3 (140-440); RED BLOOD COUNT 4.78 X10'6 (4.70-6.10); RED CELL DISTRIBUTION WIDTH 17.8 % (11.5-14.5)
[2017-06-28 17:24] LABS: INR 2.5 INR; PARTIAL THROMBOPLASTIN TIME 36 SECONDS (22-32); PROTHROMBIN TIME 24.8 SECONDS (9.0-12.0)
[2017-06-28 17:37] LABS: LIPASE 154 U/L (73-393)
[2017-06-28 18:16] LABS: CLARITY,URINE TURBID (Clear); COLOR,URINE YELLOW (Yellow); GLUCOSE, URINE NEGATIVE (Neg); KETONES,URINE NEGATIVE (Neg); LEUKOCYTE ESTERASE ,URINE LARGE (Neg); NITRITES, URINE NEGATIVE (Neg); OCCULT BLOOD,URINE LARGE (Neg); PH,URINE 5.5 (4.8-8.0); PROTEIN,URINE 100 mg/dl (Neg); UROBILINOGEN,URINE 0.2 E.U/dL (0.2-1.0)
[2017-06-28 18:18] LABS: UA COLLECTION TYPE FOLEY CATH
[2017-06-28 18:29] LABS: YEAST MANY /HPF (NEGATIVE)
[2017-06-28 18:31] LABS: RBC,URINE TNTC /HPF (0-2); WBC,URINE 50-100 /HPF (0-4)
[2017-06-28 18:32] LABS: BACTERIA,URINE FEW /HPF (Neg)
[2017-06-28 18:33] LABS: AMORPHOUS URATES 1+; MUCUS STRANDS NONE SEEN /LPF (Neg); RENAL CELLS, URINE FEW /HPF; SQUAMOUS EPITHELIAL CELL,UR NONE SEEN /LPF (FEW)
[2017-06-28] MEDS ORDERED: DOBUTamine-DoBUTrex 500mg/D5W 250 ML IV SCH (18:35)
[2017-06-28] MEDS ORDERED: furosemide 40mg/4ml inj IV ONE (18:40)
[2017-06-28] MEDS ORDERED: sodium bicarbonate (0.9mEq/ml) 44.6 mEq/50ml syringe IV ONE (18:40)
[2017-06-28] MEDS ORDERED: CefTRIAXone 2gm/NS 100ml IVPB 100 ML IV ONE (18:40)
[2017-06-28] MEDS ORDERED: calcium chloride 100 MG/1 ML inj IV ONE (18:40)
[2017-06-28] MEDS ORDERED: insulin regular, human 10 units/0.1 ml syringe IV ONE (18:40)
[2017-06-28] MEDS ORDERED: dextrose 50%-water 50ml dispensing syringe IV ONE (18:40)
[2017-06-28 18:49] LABS: TOTAL CELLS COUNTED 100
[2017-06-28 18:50] LABS: ANISOCYTOSIS 2+; PLATELET ESTIMATE NORMAL; TOXIC GRANULATION 1+
[2017-06-28 18:51] LABS: POIKILOCYTOSIS 2+; SCHISTOCYTES FEW
[2017-06-28 18:52] LABS: ELLIPTOCYTES 2+; TEAR DROP CELLS FEW
[2017-06-28 18:53] LABS: HYPERSEGMENTED NEUTROPHILS FEW
[2017-06-28] MEDS: sodium polystyrene sulfonate 15gm/60ml oral suspension PO ONE ×2 (20:11→20:31)
[2017-06-28] MEDS: sodium bicarbonate (8.4%) 1 mEq/ml syringe IV ONE ×2 (20:12→20:26)
[2017-06-28] MEDS ORDERED: sodium bicarbonate (8.4%) 1 mEq/ml syringe IV ONE (20:25)
[2017-06-28] MEDS ORDERED: ondansetron/PF 4mg/2ml inj IV ONE (20:35)
[2017-06-28] MEDS: DOBUTamine-DoBUTrex 500mg/D5W 250 ML IV SCH (21:21)
[2017-06-28 21:26] LABS: ALBUMIN/GLOBULIN RATIO 0.9 (1.1-1.5); BILIRUBIN,DIRECT 0.2 MG/DL (0-0.3); BILIRUBIN,TOTAL 1.1 MG/DL (0.1-1.0); TOTAL PROTEIN 6.2 G/DL (6.4-8.2)
[2017-06-28] MEDS: amiodarone 200mg tablet PO SCH (21:26)
[2017-06-28 21:27] LABS: ALANINE AMINOTRANSFERASE 20 U/L (12-78); ALKALINE PHOSPHATASE 83 IU/L (46-116); ASPARTATE AMINO TRANSFERASE 22 U/L (10-37)
[2017-06-28] MEDS ORDERED: morphine 5 MG/ML injection IV PRN (21:30)
[2017-06-28] MEDS ORDERED: non-formulary drug (albuterol inhaler (Pro-Air Inhaler) 0 PUFFS) PO PRN (21:40)
[2017-06-28] MEDS ORDERED: MESSAGE TO PHARMACY PO ONE (21:45)
[2017-06-28] MEDS ORDERED: glucagon, human recombinant 1mg kit SUBCUT PRN (21:45)
[2017-06-28] MEDS ORDERED: dextrose 50%-water 50ml dispensing syringe IV PRN ×2 (21:45)
[2017-06-28] MEDS ORDERED: dextrose ORAL solution 15 GM/59 ML bottle PO PRN ×2 (21:45)
[2017-06-28 22:19] LABS: ALBUMIN 2.9 G/DL (3.4-5.0); ANION GAP 12 (8-16); BLOOD UREA NITROGEN 141 MG/DL (7-18); BUN/CREATININE RATIO 32.7 (5.4-32.0); CALCIUM 8.8 MG/DL (8.5-10.1); CHLORIDE 99 MMOL/L (99-107); CREATININE 4.31 MG/DL (0.60-1.10); GLUCOSE 168 MG/DL (70-104); POTASSIUM 4.9 MMOL/L (3.5-5.1); SODIUM 133 MMOL/L (135-145); TOTAL CARBON DIOXIDE 21.9 MMOL/L (24-32); eGFR 14 ML/MIN
[2017-06-28 22:30] VITALS: BP 96/69
[2017-06-29] VITALS (13 sets, daily range): BP systolic 91–128; BP diastolic 55–82
[2017-06-29] MEDS: ondansetron/PF 4mg/2ml inj IV PRN ×3 (05:39→21:04)
[2017-06-29 06:05] LABS: BASOPHILS % (AUTO) 0.2 % (0-1); EOSINOPHILS # (AUTO) 0.2 X10'3 (0-0.9); LYMPHOCYTES # (AUTO) 0.4 X10'3 (1.1-4.8); LYMPHOCYTES % (AUTO) 3.5 % (21-51); MEAN CORPUSCULAR HEMOGLOBIN 28.6 PG (27.0-31.0); MEAN CORPUSCULAR HGB CONC 33.3 % (33.0-36.5); MEAN CORPUSCULAR VOLUME 85.9 FL (78-98); MEAN PLATELET VOLUME 8.4 FL (7.4-10.4); MONOCYTES # (AUTO) 0.7 X10'3 (0-0.9); MONOCYTES % (AUTO) 5.7 % (2-12); NEUTROPHILS # (AUTO) 10.9 X10'3 (1.8-7.7); NEUTROPHILS % (AUTO) 88.6 % (42-75); PLATELET COUNT 159 X10'3 (140-440); RED BLOOD COUNT 4.54 X10'6 (4.70-6.10); RED CELL DISTRIBUTION WIDTH 17.9 % (11.5-14.5); WHITE BLOOD COUNT 12.3 X10'3 (4.5-11.0)
[2017-06-29 06:08] LABS: INR 2.7 INR; PROTHROMBIN TIME 26.8 SECONDS (9.0-12.0)
[2017-06-29 06:15] LABS: ALBUMIN 2.9 G/DL (3.4-5.0); ANION GAP 13 (8-16); BLOOD UREA NITROGEN 141 MG/DL (7-18); CALCIUM 8.5 MG/DL (8.5-10.1); CHLORIDE 98 MMOL/L (99-107); CREATININE 4.41 MG/DL (0.60-1.10); GLUCOSE 138 MG/DL (70-104); MAGNESIUM 2.4 MG/DL (1.5-2.4); PHOSPHORUS 5.7 MG/DL (2.3-4.5); SODIUM 133 MMOL/L (135-145); TOTAL CARBON DIOXIDE 22.2 MMOL/L (24-32); eGFR 13 ML/MIN
[2017-06-29] MEDS ORDERED: non-formulary drug (Lactobacillus Acidophilus (ACIDOPHILUS capsule) 1 CAP) PO SCH (08:00)
[2017-06-29] MEDS: amiodarone 200mg tablet PO SCH ×2 (08:25→22:11)
[2017-06-29] MEDS: lactobacillus rhamnosus 10,000 MMU CELLS/CAPSULE PO SCH ×2 (08:25→17:11)
[2017-06-29 16:36] LABS: CLARITY,URINE CLEAR (Clear); COLOR,URINE YELLOW (Yellow); GLUCOSE, URINE NEGATIVE (Neg); KETONES,URINE NEGATIVE (Neg); LEUKOCYTE ESTERASE ,URINE LARGE (Neg); NITRITES, URINE NEGATIVE (Neg); OCCULT BLOOD,URINE LARGE (Neg); PH,URINE 5.5 (4.8-8.0); PROTEIN,URINE NEGATIVE (Neg); UROBILINOGEN,URINE 0.2 E.U/dL (0.2-1.0)
[2017-06-29 16:39] LABS: UA COLLECTION TYPE FOLEY CATH
[2017-06-29 16:40] LABS: TOTAL PROTEIN,URINE RANDOM 18.5 MG/DL
[2017-06-29 16:41] LABS: SODIUM,URINE RANDOM < 15 MEQ/L
[2017-06-29 16:44] LABS: RBC,URINE 0-2 /HPF (0-2); WBC,URINE 30-50 /HPF (0-4)
[2017-06-29 16:45] LABS: BACTERIA,URINE 1+ /HPF (Neg); SQUAMOUS EPITHELIAL CELL,UR NONE SEEN /LPF (FEW); YEAST FEW /HPF (NEGATIVE)
[2017-06-29 17:01] LABS: UA EOSINOPHILS NO EOS /HPF
[2017-06-29] MEDS: NUT.TX.GLUC.INTOLER,LAC-FR,REG (BOOST GLUCOSE CONTROL) 237 ML PO SCH (18:00)
[2017-06-29] MEDS: DOBUTamine-DoBUTrex 500mg/D5W 250 ML IV SCH (18:29)
[2017-06-29] MEDS ORDERED: proMETHazine 25mg rectal suppository RC PRN (19:50)
[2017-06-29] MEDS ORDERED: warfarin 3mg tablet PO SCH (21:00)
[2017-06-29] MEDS: insulin glargine (Lantus) pen - multi-dose SQ SCH (21:00)
[2017-06-29] MEDS ORDERED: non-formulary drug (Simvastatin* (Zocor*) 1 TAB) PO SCH (21:00)
[2017-06-29] MEDS: albuterol 2.5 MG/3 ML nebule NEB PRN (21:09)
[2017-06-29] MEDS: proCHLORperazine 10 MG/2 ml inj IV PRN (21:17)
[2017-06-29] MEDS: morphine 4 MG/ML inj SYRINge IV PRN (21:19)
[2017-06-29] MEDS: cefTRIAXone 1g/NS 100ml IVPB 100 ML IV SCH (22:22)
[2017-06-29] MEDS: atorvastatin 10mg tablet PO SCH (22:23)
[2017-06-29] MEDS: furosemide 20 MG/2 ML vial IV SCH (22:24)
[2017-06-30] VITALS (11 sets, daily range): BP systolic 93–135; BP diastolic 68–93
[2017-06-30] MEDS: furosemide 20 MG/2 ML vial IV SCH ×6 (04:00→21:04)
[2017-06-30 05:52] LABS: BASOPHILS % (AUTO) 0 % (0-1); EOSINOPHILS # (AUTO) 0.2 X10'3 (0-0.9); EOSINOPHILS % (AUTO) 1.7 % (0-6); HEMATOCRIT 40.5 % (42.0-52.0); HEMOGLOBIN 13.7 g/dl (14.0-17.9); LYMPHOCYTES # (AUTO) 0.4 X10'3 (1.1-4.8); LYMPHOCYTES % (AUTO) 2.8 % (21-51); MEAN CORPUSCULAR HEMOGLOBIN 28.7 PG (27.0-31.0); MEAN CORPUSCULAR HGB CONC 33.7 % (33.0-36.5); MEAN CORPUSCULAR VOLUME 85.1 FL (78-98); MEAN PLATELET VOLUME 8.5 FL (7.4-10.4); MONOCYTES # (AUTO) 0.5 X10'3 (0-0.9); MONOCYTES % (AUTO) 3.6 % (2-12); NEUTROPHILS # (AUTO) 11.8 X10'3 (1.8-7.7); NEUTROPHILS % (AUTO) 91.9 % (42-75); PLATELET COUNT 152 X10'3 (140-440); RED BLOOD COUNT 4.77 X10'6 (4.70-6.10); RED CELL DISTRIBUTION WIDTH 18.1 % (11.5-14.5); WHITE BLOOD COUNT 12.9 X10'3 (4.5-11.0)
[2017-06-30 06:14] LABS: ANION GAP 15 (8-16); BLOOD UREA NITROGEN 138 MG/DL (7-18); BUN/CREATININE RATIO 30.7 (5.4-32.0); CALCIUM 8.9 MG/DL (8.5-10.1); CHLORIDE 98 MMOL/L (99-107); CREATININE 4.49 MG/DL (0.60-1.10); GLUCOSE 142 MG/DL (70-104); MAGNESIUM 2.5 MG/DL (1.5-2.4); PHOSPHORUS 6.6 MG/DL (2.3-4.5); POTASSIUM 5.5 MMOL/L (3.5-5.1); SODIUM 133 MMOL/L (135-145); TOTAL CARBON DIOXIDE 20.5 MMOL/L (24-32); eGFR 13 ML/MIN
[2017-06-30 06:15] LABS: INR 2.6 INR; PROTHROMBIN TIME 26.3 SECONDS (9.0-12.0)
[2017-06-30] MEDS: NUT.TX.GLUC.INTOLER,LAC-FR,REG (BOOST GLUCOSE CONTROL) 237 ML PO SCH ×3 (08:00→18:34)
[2017-06-30] MEDS: lactobacillus rhamnosus 10,000 MMU CELLS/CAPSULE PO SCH ×2 (10:19→17:03)
[2017-06-30] MEDS: amiodarone 200mg tablet PO SCH ×2 (10:19→21:04)
[2017-06-30] MEDS ORDERED: amiodarone 200mg tablet PO SCH (13:05)
[2017-06-30] MEDS ORDERED: amiodarone 200mg tablet PO ONE (13:15)
[2017-06-30] MEDS: carVEDilol 3.125mg tablet PO SCH ×2 (13:18→21:04)
[2017-06-30] MEDS: albuterol 2.5 MG/3 ML nebule NEB PRN (15:08)
[2017-06-30] MEDS: DOBUTamine-DoBUTrex 500mg/D5W 250 ML IV SCH (18:30)
[2017-06-30] MEDS: ondansetron/PF 4mg/2ml inj IV PRN (19:55)
[2017-06-30] MEDS: morphine 4 MG/ML inj SYRINge IV PRN (20:41)
[2017-06-30] MEDS: insulin glargine (Lantus) pen - multi-dose SQ SCH (21:00)
[2017-06-30] MEDS ORDERED: warfarin 3mg tablet PO SCH (21:00)
[2017-06-30] MEDS: atorvastatin 10mg tablet PO SCH (21:04)
[2017-06-30] MEDS: cefTRIAXone 1g/NS 100ml IVPB 100 ML IV SCH (21:04)
[2017-06-30] MEDS ORDERED: sodium polystyrene sulfonate 15gm/60ml oral suspension PO ONE (21:10)
[2017-06-30] MEDS: proCHLORperazine 10 MG/2 ml inj IV PRN (22:48)
[2017-06-30] MEDS ORDERED: sodium polystyrene sulfonate 15gm/60ml oral suspension PR ONE (23:20)
[2017-07-01] VITALS (12 sets, daily range): BP systolic 103–129; BP diastolic 63–94
[2017-07-01 02:53] LABS: BASOPHILS % (AUTO) 0.2 % (0-1); EOSINOPHILS # (AUTO) 0.3 X10'3 (0-0.9); EOSINOPHILS % (AUTO) 1.9 % (0-6); HEMOGLOBIN 13.7 g/dl (14.0-17.9); LYMPHOCYTES # (AUTO) 0.6 X10'3 (1.1-4.8); LYMPHOCYTES % (AUTO) 4.3 % (21-51); MEAN CORPUSCULAR HEMOGLOBIN 28.7 PG (27.0-31.0); MEAN CORPUSCULAR HGB CONC 33.3 % (33.0-36.5); MEAN PLATELET VOLUME 7.8 FL (7.4-10.4); MONOCYTES # (AUTO) 0.7 X10'3 (0-0.9); MONOCYTES % (AUTO) 5.3 % (2-12); NEUTROPHILS # (AUTO) 11.5 X10'3 (1.8-7.7); NEUTROPHILS % (AUTO) 88.3 % (42-75); PLATELET COUNT 156 X10'3 (140-440); RED BLOOD COUNT 4.77 X10'6 (4.70-6.10); RED CELL DISTRIBUTION WIDTH 18.4 % (11.5-14.5)
[2017-07-01 03:03] LABS: INR 3.8 INR; PROTHROMBIN TIME 37.5 SECONDS (9.0-12.0)
[2017-07-01 03:06] LABS: ANION GAP 15 (8-16); BLOOD UREA NITROGEN 143 MG/DL (7-18); BUN/CREATININE RATIO 30.9 (5.4-32.0); CALCIUM 8.8 MG/DL (8.5-10.1); CHLORIDE 99 MMOL/L (99-107); CREATININE 4.63 MG/DL (0.60-1.10); GLUCOSE 187 MG/DL (70-104); MAGNESIUM 2.5 MG/DL (1.5-2.4); PHOSPHORUS 6.9 MG/DL (2.3-4.5); POTASSIUM 5.4 MMOL/L (3.5-5.1); SODIUM 136 MMOL/L (135-145); TOTAL CARBON DIOXIDE 22.2 MMOL/L (24-32); eGFR 13 ML/MIN
[2017-07-01] MEDS: ondansetron/PF 4mg/2ml inj IV PRN ×2 (04:05→10:43)
[2017-07-01] MEDS: morphine 4 MG/ML inj SYRINge IV PRN ×2 (04:05→13:34)
[2017-07-01] MEDS: furosemide 20 MG/2 ML vial IV SCH ×5 (04:05→20:41)
[2017-07-01] MEDS: lactobacillus rhamnosus 10,000 MMU CELLS/CAPSULE PO SCH ×2 (07:30→16:59)
[2017-07-01] MEDS: insulin Lispro (HumaLOG) vial - multi-dose SQ SCH ×2 (07:33→13:07)
[2017-07-01] MEDS: proCHLORperazine 10 MG/2 ml inj IV PRN (07:48)
[2017-07-01] MEDS: cefTRIAXone 1g/NS 100ml IVPB 100 ML IV SCH (07:59)
[2017-07-01] MEDS: amiodarone 200mg tablet PO SCH ×2 (08:00→20:41)
[2017-07-01] MEDS: carVEDilol 3.125mg tablet PO SCH ×2 (08:00→20:42)
[2017-07-01] MEDS: NUT.TX.GLUC.INTOLER,LAC-FR,REG (BOOST GLUCOSE CONTROL) 237 ML PO SCH ×3 (08:00→18:00)
[2017-07-01] MEDS ORDERED: metoclopramide 5 mg/ml inj IV PRN (11:50)
[2017-07-01] MEDS: DOBUTamine-DoBUTrex 500mg/D5W 250 ML IV SCH (13:09)
[2017-07-01] MEDS: metoclopramide 10mg/10 ml UD oral solution PO PRN ×2 (13:33→13:42)
[2017-07-01] MEDS: albuterol 2.5 MG/3 ML nebule NEB PRN (15:15)
[2017-07-01] MEDS: LORazepam 2 mg/ml vial IV PRN (16:59)
[2017-07-01] MEDS: atorvastatin 10mg tablet PO SCH (20:42)
[2017-07-01] MEDS: insulin glargine (Lantus) pen - multi-dose SQ SCH (20:45)
[2017-07-02] VITALS (17 sets, daily range): BP systolic 104–142; BP diastolic 65–90
[2017-07-02] MEDS: furosemide 20 MG/2 ML vial IV SCH ×2 (01:44→07:30)
[2017-07-02 06:39] LABS: BASOPHILS % (AUTO) 0.1 % (0-1); EOSINOPHILS # (AUTO) 0.1 X10'3 (0-0.9); EOSINOPHILS % (AUTO) 0.9 % (0-6); HEMATOCRIT 41.6 % (42.0-52.0); HEMOGLOBIN 13.9 g/dl (14.0-17.9); LYMPHOCYTES # (AUTO) 0.3 X10'3 (1.1-4.8); LYMPHOCYTES % (AUTO) 2.3 % (21-51); MEAN CORPUSCULAR HEMOGLOBIN 28.3 PG (27.0-31.0); MEAN CORPUSCULAR HGB CONC 33.5 % (33.0-36.5); MEAN CORPUSCULAR VOLUME 84.5 FL (78-98); MEAN PLATELET VOLUME 7.8 FL (7.4-10.4); MONOCYTES % (AUTO) 7.9 % (2-12); NEUTROPHILS # (AUTO) 11.7 X10'3 (1.8-7.7); NEUTROPHILS % (AUTO) 88.8 % (42-75); PLATELET COUNT 142 X10'3 (140-440); RED BLOOD COUNT 4.92 X10'6 (4.70-6.10); RED CELL DISTRIBUTION WIDTH 18.5 % (11.5-14.5); WHITE BLOOD COUNT 13.2 X10'3 (4.5-11.0)
[2017-07-02 06:55] LABS: ANION GAP 15 (8-16); CALCIUM 8.8 MG/DL (8.5-10.1); CHLORIDE 98 MMOL/L (99-107); CREATININE 4.84 MG/DL (0.60-1.10); GLUCOSE 222 MG/DL (70-104); MAGNESIUM 2.5 MG/DL (1.5-2.4); POTASSIUM 5.1 MMOL/L (3.5-5.1); PROTHROMBIN TIME 61.2 SECONDS (9.0-12.0); SODIUM 134 MMOL/L (135-145); eGFR 12 ML/MIN
[2017-07-02 06:59] LABS: BLOOD UREA NITROGEN 155 MG/DL (7-18)
[2017-07-02 07:00] LABS: INR 6.3 INR
[2017-07-02] MEDS: insulin Lispro (HumaLOG) vial - multi-dose SQ SCH ×3 (07:20→19:02)
[2017-07-02] MEDS: cefTRIAXone 1g/NS 100ml IVPB 100 ML IV SCH (07:26)
[2017-07-02] MEDS: DOBUTamine-DoBUTrex 500mg/D5W 250 ML IV SCH ×2 (07:28→15:22)
[2017-07-02] MEDS: lactobacillus rhamnosus 10,000 MMU CELLS/CAPSULE PO SCH ×2 (07:30→17:10)
[2017-07-02] MEDS: carVEDilol 3.125mg tablet PO SCH ×2 (08:00→20:00)
[2017-07-02] MEDS: NUT.TX.GLUC.INTOLER,LAC-FR,REG (BOOST GLUCOSE CONTROL) 237 ML PO SCH ×3 (08:00→18:00)
[2017-07-02] MEDS: amiodarone 200mg tablet PO SCH ×2 (08:00→20:00)
[2017-07-02] MEDS: proCHLORperazine 10 MG/2 ml inj IV PRN ×3 (10:15→21:08)
[2017-07-02] MEDS ORDERED: phytonadione inj. 10 MG in normal saline 100ml IV soln 99 ML IV ONE (10:30)
[2017-07-02] MEDS ORDERED: phytonadione inj. 5 MG in normal saline 100ml IV soln 99.5 ML IV ONE (10:55)
[2017-07-02] MEDS: albuterol 2.5 MG/3 ML nebule NEB PRN (11:19)
[2017-07-02] MEDS: LORazepam 2 mg/ml vial IV PRN (18:42)
[2017-07-02] MEDS: ondansetron/PF 4mg/2ml inj IV PRN ×2 (18:51→18:55)
[2017-07-02] MEDS: atorvastatin 10mg tablet PO SCH (21:00)
[2017-07-02] MEDS: insulin glargine (Lantus) pen - multi-dose SQ SCH (21:07)
[2017-07-03] VITALS (14 sets, daily range): BP systolic 95–132; BP diastolic 58–84
[2017-07-03] MEDS: ondansetron/PF 4mg/2ml inj IV PRN ×2 (00:13→07:21)
[2017-07-03] MEDS: proCHLORperazine 10 MG/2 ml inj IV PRN ×3 (04:21→18:48)
[2017-07-03] MEDS: morphine 4 MG/ML inj SYRINge IV PRN ×3 (05:22→22:53)
[2017-07-03] MEDS: lactobacillus rhamnosus 10,000 MMU CELLS/CAPSULE PO SCH (07:11)
[2017-07-03] MEDS: NUT.TX.GLUC.INTOLER,LAC-FR,REG (BOOST GLUCOSE CONTROL) 237 ML PO SCH ×3 (07:11→18:00)
[2017-07-03] MEDS: amiodarone 200mg tablet PO SCH (07:12)
[2017-07-03] MEDS: carVEDilol 3.125mg tablet PO SCH ×2 (07:12→20:00)
[2017-07-03] MEDS: insulin Lispro (HumaLOG) vial - multi-dose SQ SCH ×2 (07:20→13:27)
[2017-07-03] MEDS: cefTRIAXone 1g/NS 100ml IVPB 100 ML IV SCH (07:21)
[2017-07-03 07:26] LABS: BASOPHILS % (AUTO) 0.3 % (0-1); EOSINOPHILS # (AUTO) 0.2 X10'3 (0-0.9); EOSINOPHILS % (AUTO) 1.4 % (0-6); HEMATOCRIT 40.7 % (42.0-52.0); HEMOGLOBIN 13.4 g/dl (14.0-17.9); LYMPHOCYTES # (AUTO) 0.3 X10'3 (1.1-4.8); LYMPHOCYTES % (AUTO) 1.8 % (21-51); MEAN CORPUSCULAR HEMOGLOBIN 28.3 PG (27.0-31.0); MEAN CORPUSCULAR VOLUME 85.8 FL (78-98); MEAN PLATELET VOLUME 8.3 FL (7.4-10.4); MONOCYTES # (AUTO) 0.8 X10'3 (0-0.9); MONOCYTES % (AUTO) 5.4 % (2-12); NEUTROPHILS # (AUTO) 13.2 X10'3 (1.8-7.7); NEUTROPHILS % (AUTO) 91.1 % (42-75); PLATELET COUNT 126 X10'3 (140-440); RED BLOOD COUNT 4.74 X10'6 (4.70-6.10); RED CELL DISTRIBUTION WIDTH 17.6 % (11.5-14.5); WHITE BLOOD COUNT 14.5 X10'3 (4.5-11.0)
[2017-07-03 07:36] LABS: INR 1.5 INR; PROTHROMBIN TIME 15.6 SECONDS (9.0-12.0)
[2017-07-03 07:42] LABS: ALBUMIN 2.9 G/DL (3.4-5.0); ANION GAP 14 (8-16); BLOOD UREA NITROGEN 152 MG/DL (7-18); BUN/CREATININE RATIO 31.7 (5.4-32.0); CALCIUM 8.5 MG/DL (8.5-10.1); CHLORIDE 99 MMOL/L (99-107); GLUCOSE 178 MG/DL (70-104); MAGNESIUM 2.5 MG/DL (1.5-2.4); PHOSPHORUS 6.2 MG/DL (2.3-4.5); POTASSIUM 4.7 MMOL/L (3.5-5.1); SODIUM 135 MMOL/L (135-145); TOTAL CARBON DIOXIDE 22.3 MMOL/L (24-32); eGFR 12 ML/MIN
[2017-07-03] MEDS: DOBUTamine-DoBUTrex 500mg/D5W 250 ML IV SCH (09:05)
[2017-07-03] MEDS ORDERED: acetaminophen 325mg tablet PO PRN (15:35)
[2017-07-03] MEDS: albuterol 2.5 MG/3 ML nebule NEB PRN ×2 (15:54→19:33)
[2017-07-03] MEDS: furosemide 20MG tablet PO SCH (20:00)
[2017-07-03] MEDS: docusate sod 100mg capsule PO SCH (20:00)
[2017-07-04] MEDS: proCHLORperazine 10 MG/2 ml inj IV PRN (00:37)
[2017-07-04] MEDS: morphine 4 MG/ML inj SYRINge IV PRN ×3 (02:58→13:42)
[2017-07-04] MEDS: albuterol 2.5 MG/3 ML nebule NEB PRN (05:58)
[2017-07-04 06:00] VITALS: BP 103/74
[2017-07-04] MEDS: furosemide 20MG tablet PO SCH ×2 (08:00→20:00)
[2017-07-04] MEDS: docusate sod 100mg capsule PO SCH ×2 (08:00→20:00)
[2017-07-04] MEDS: carVEDilol 3.125mg tablet PO SCH ×2 (08:00→20:00)
[2017-07-04] MEDS: NUT.TX.GLUC.INTOLER,LAC-FR,REG (BOOST GLUCOSE CONTROL) 237 ML PO SCH ×3 (08:58→18:00)
[2017-07-04 11:00] VITALS: BP 93/61
[2017-07-04 15:00] VITALS: BP 99/64
[2017-07-04] MEDS: morphine 10mg/0.5ml (conc. morphine) oral syringe PO PRN ×2 (16:52→22:23)
[2017-07-04 20:00] VITALS: BP 89/67
[2017-07-05] MEDS: morphine 10mg/0.5ml (conc. morphine) oral syringe PO PRN ×5 (02:29→23:43)
[2017-07-05] MEDS: carVEDilol 3.125mg tablet PO SCH ×2 (06:42→20:00)
[2017-07-05] MEDS: docusate sod 100mg capsule PO SCH ×2 (06:42→20:00)
[2017-07-05] MEDS: furosemide 20MG tablet PO SCH ×2 (06:42→20:00)
[2017-07-05 08:00] VITALS: BP 123/71
[2017-07-05] MEDS: NUT.TX.GLUC.INTOLER,LAC-FR,REG (BOOST GLUCOSE CONTROL) 237 ML PO SCH ×3 (08:00→15:45)
[2017-07-05] MEDS ORDERED: bisacodyl 10mg suppository rectal RC STA (09:18)
[2017-07-05 20:00] VITALS: BP 96/73
[2017-07-06] MEDS: morphine 10mg/0.5ml (conc. morphine) oral syringe PO PRN (02:48)
[2017-07-06 07:00] VITALS: BP 114/57
[2017-07-06] MEDS: docusate sod 100mg capsule PO SCH (08:00)
[2017-07-06] MEDS: furosemide 20MG tablet PO SCH (08:00)
[2017-07-06] MEDS: carVEDilol 3.125mg tablet PO SCH (08:00)
[2017-07-06] MEDS: NUT.TX.GLUC.INTOLER,LAC-FR,REG (BOOST GLUCOSE CONTROL) 237 ML PO SCH ×2 (08:00→13:00)
== END 2017-07-06 20:45 | disposition expired | DRG 698 ==
LOC: ER 15:17 → ED HOLD 21:30 → PCU 3S 22:27 → MED 3N 07-04 17:30
PROVIDERS: ADMIT Family Medicine; ATTEND Internal Medicine
DX: T83.511A Infection and inflammatory reaction due to indwelling urethral catheter, initial encounter (principal); I50.23 Acute on chronic systolic (congestive) heart failure; N17.9 Acute kidney failure, unspecified; I47.2 Ventricular tachycardia; N18.4 Chronic kidney disease, stage 4 (severe); I08.1 Rheumatic disorders of both mitral and tricuspid valves; E11.22 Type 2 diabetes mellitus with diabetic chronic kidney disease; I13.0 Hypertensive heart and chronic kidney disease with heart failure and stage 1 through stage 4 chronic kidney disease, or unspecified chronic kidney disease; E87.1 Hypo-osmolality and hyponatremia; Z68.41 Body mass index [BMI] 40.0-44.9, adult; I42.8 Other cardiomyopathies; E11.65 Type 2 diabetes mellitus with hyperglycemia; N39.0 Urinary tract infection, site not specified; D64.9 Anemia, unspecified; E66.9 Obesity, unspecified; E78.5 Hyperlipidemia, unspecified; E87.5 Hyperkalemia; G47.33 Obstructive sleep apnea (adult) (pediatric); I25.10 Atherosclerotic heart disease of native coronary artery without angina pectoris; I48.2 Chronic atrial fibrillation; M10.9 Gout, unspecified; Z51.5 Encounter for palliative care; Z66 Do not resuscitate; Z98.52 Vasectomy status; Z95.810 Presence of automatic (implantable) cardiac defibrillator; Z90.49 Acquired absence of other specified parts of digestive tract; Z79.01 Long term (current) use of anticoagulants; Z79.4 Long term (current) use of insulin; Z83.3 Family history of diabetes mellitus; Y92.89 Other specified places as the place of occurrence of the external cause
CPT/HCPCS: 36415; 71045; 71046; 74018; 80048; 80076; 81001; 82570; 82948; 83036; 83690; 83735; 83880; 84100; 84156; 84300; 84439; 84443; 84540; 85025; 85610; 85730; 87070; 87077; 87088; 87207; 93005; 94640; 94760; 96365; 96375; 96376; 97162; 97530; 99291; A6196; A6209; A6212; A6213; A6253; A6446; A6449; J0696; J0780; J1250; J1815; J1940; J2060; J2270; J2405; J3430; J7030; J7120; J8597